=== PATIENT | male | born 1985 | race Caucasian/White ===

== ENCOUNTER 2020-12-13 23:13 | Emergency (ER) | payer OTHER ==
[2020-12-14] MEDS ORDERED: BACTRIM DS TAB1 EACH PO (02:10)
[2020-12-14] MEDS ORDERED: KEFLEX CAP 250250 MG PO (02:10)
== END 2020-12-14 02:15 | disposition home or self-care (01) ==
LOC: ER1 23:13
DX: L72.0 Epidermal cyst (principal); F17.210 Nicotine dependence, cigarettes, uncomplicated
CPT/HCPCS: 93005; 99283

== ENCOUNTER → 2021-01-22 | Outpatient (CLI) | payer OTHER ==
[~2021-01-22] MED LIST: BACTRIM DS TAB1 EACH PO; KEFLEX CAP 250250 MG PO
== END ==
LOC: EMI 01-14 14:00
DX: R22.0 Localized swelling, mass and lump, head (principal)
CPT/HCPCS: 70551